=== PATIENT | female | born 1990 | race Two or more races ===

== ENCOUNTER 2017-02-07 19:43 | Emergency (ER) | payer MEDICAID ==
--- NOTE | 2017-02-07 20:29 | ED Physician Chart ---
Chief Complaint/HPI - Patient Information Date Seen:: 02/07/17 Time Seen:: 19:50 Chief Complaint:: i want a med clearance to go to rehab History of Present Illness:: Patient presents to the emergency room asking for "a medical clearance so that I can go to a rehabilitation facility." Patient has been in discussion with the rehabilitation facility in [place] and they told her to go to an emergency room for this medical clearance. I called the facility and spoke to bud murray who told me that the patient cannot be in active withdrawal at the time she presents to their facility. She told me that they will do a drug screen upon intake at their facility, and that I do not need to do a test in light of her current menses. I explained all of this to the satisfaction of the patient and she verbalizes understanding. The patient admits to use of methamphetamine, marijuana, alcohol, and Xanax. She never uses needles and denies high risk sexual history and always uses condoms. Allergies:: Allergies Allergy/AdvReac Type Severity Reaction Status Date / Time No Known Allergies Allergy Verified 02/07/17 20:04 Vitals:: Vital Signs - 8 hr 02/07/17 19:45 Temp 98.4 F HR 80 RR 20 BP 148/92 O2 Sat % 100 Historian:: Patient Review:: Nurse's Note Reviewed Review of Systems - Review of Systems General/Constitutional: No fever, No chills, No diaphoresis Skin: No skin lesions Head: No headache Cardio Vascular: No chest pain, No palpitations Pulmonary: No SOB, No cough GI: No nausea, No vomiting, Other (chronic intermittant right sided abd pain, infrequent, not currently present) [employer] Manager: Other (current menses, irregular periods, LNMP 6 weeks ago) Psychiatric: No prior psych history, No suicidal ideation, No auditory hallucination, No visual hallucination Hematopoietic: No bruising Neurological: No focal symptoms, No weakness, No headache, No seizure, No confusion Past Medical History - Past Medical History Obtainable: Yes Past Medical History: No significant medical hx Social History: Non Smoker, Alcohol, Illicit Drug Use, Single Surgical History: None Psychiatricy History: None Medication: None Family Medical History - Family Member Mother History Unknown: Yes Physical Exam - Physical Examination General/Constitutional: Awake, Well-developed, well-nourished, Alert, GCS 15, Non-toxic appearing, Ambulatory Other Gen/Cons comments:: Patient has mild hypertension with a blood pressure of 148/92. All other vital signs are normal as are the skin vital signs. Head: Atraumatic Eyes: Lids, conjuctiva normal, PERRL, EOMI Skin: Nl inspection, No rash, No skin lesions, No ecchymosis, Well hydrated, No lymphadenopathy ENMT: External ears, nose nl, Lips, teeth, gums nl, Oropharynx nl Neck: Nontender, No stridor Respiratory: Nl effort/Exclusion, Clear to Auscultation, No Wheeze/Rhonchi/Rales Cardio Vascular: RRR, Carotid/Femoral/Distal pulses equal bilaterally Extremities: No tenderness or effusion, Full ROM, normal strength in all extremities, No edema, Normal digits & nails Neuro/Psych: Alert/oriented, DTR's symmetric, Normal motor strength, Judgement/ insight normal, No focal deficits (mildly 'anxious') Assessment - Assessment General Assessment: Patient with history of polysubstance abuse who desires admission to rehabilitation facility and needs a medical clearance which apparently only requires a history and physical at this time. Her only positive findings are mild subjective anxiety and a slightly elevated blood pressure of 148/92. There are no other overt signs of acute withdrawal at this time but only time will tell as to whether or not she will develop more overt signs of withdrawal. The patient has never gone to a detox facility, she has never experienced overt withdrawal symptoms by history, but in all honesty she says she has not had a prolonged period without one or another of these various substances. ED Septic Shock - . Is Septic Shock (SBP<90, OR Lactate>4 mmol\\L) present?: No - <6hrs of presentation: Vital Signs: Vital Signs - 8 hr 02/07/17 19:45 Temp 98.4 F HR 80 RR 20 BP 148/92 O2 Sat % 100 Reassessment (Disposition) - Reassessment Reassessment:: Patient states that she anticipates leaving this emergency room and going directly to the rehabilitation facility. Reassessment Condition:: Unchanged - Diagnosis Diagnosis:: #1. History of polysubstance abuse. #2. Mild hypertension. #3. Mild subjective anxiety. - Aftercare/Follow up Instructions Aftercare/Follow-Up Instructions:: Counseled pt regarding lab results/diagnosis & need follow up, Refer to Discharge Instructions - Patient Disposition Discharge/Transfer:: Home Condition at Disposition:: Stable ED Discharge Plan - Patient Disposition Admit/Discharge/Transfer: PT DISCHARGED HOME Condition at Disposition: Stable
== END 2017-02-07 20:20 | disposition home or self-care (01) ==
LOC: ER 19:43
DX: F41.9 Anxiety disorder, unspecified (principal); I10 Essential (primary) hypertension
CPT/HCPCS: Z7502